=== PATIENT | male | born 1990 | race African-American/Black ===

== ENCOUNTER 2024-07-05 17:33 | Inpatient (IN) | payer MEDICAID ==
[~2024-07-05] VITALS: Ht 180.3 cm; Wt 85.7 kg
[~2024-07-05 17:33] MED LIST: HYDR-4902 PO; NYS5LQ MT; PANT40TA57 PO; SUCR1SUS26 PO
[2024-07-05] MEDS: IOHEXOL 300 MG/ML 100ML BOTTLE IJ ONE (17:54)
[2024-07-05 18:30] VITALS: PULSE 72; RESP 16; O2SAT 98
[2024-07-05] MEDS: ONDANSETRON HCL 4 MG/2 ML VIAL IV ONE (18:42)
[2024-07-05] MEDS: SODIUM CHLORIDE 0.9% 1,000 ML IV ONE ×3 (18:42→22:17)
[2024-07-05 18:57] LABS: Basophils # (auto) 0 10 ^3/uL (0-0.2); Basophils % (auto) 0.2 % (0.0-2.0); Eosinophils # (auto) 0 10 ^3/uL (0-0.8); Hematocrit 44.4 % (41.0-53.0); Hemoglobin 15.4 g/dL (13.5-17.5); Lymphocytes # (auto) 1.1 10 ^3/uL (0.4-5.4); Lymphocytes % (auto) 6.9 % (10.0-50.0); Mean Corpuscular Hgb Conc. 34.7 g/dL (32.0-36.0); Mean Corpuscular Volume 92.2 fL (80.0-100.0); Monocytes # (auto) 0.3 10 ^3/uL (0-1.3); Monocytes % (auto) 1.8 % (0.0-12.0); Neutrophils # (auto) 14.4 10 ^3/uL (1.6-8.6); Neutrophils % (auto) 91.1 % (37.0-80.0); Nucleated Red Blood Cells % 0.1 %; Platelet Count (auto) 284 10^3/uL (140-450); Red Blood Cells 4.82 10^6/uL (4.5-5.90); Red Cell Distribution Width 13.7 % (11.8-14.3); White Blood Cell 15.8 10^3/uL (4.4-10.8)
[2024-07-05 19:18] LABS: Lactic Acid w/Reflex 4.8 mmol/L (0.4-2.0)
[2024-07-05 19:39] LABS: Urine Bacteria None Seen /hpf (None Seen)
--- NOTE | 2024-07-05 19:43 | ED.PDOC ---
GI ASSESSMENT HPI Comments 34 y.o male presents to the ED for a chief complaint of abdominal pain associated with nausea and vomiting x 1 day. Patient woke up with progressively worsening pain this morning followed by nausea and hematemesis. Patient describes pain as sharp, non radiating, constant and rating a 10/10 on the pain scale. Patient denies any other symptoms or pain at this time. Patient was diagnosed with a hiatal hernia in March of 2024 and had similar symptoms then. Patient never had surgery for hernia. VITALS: Temp: 98 F BP: 141/70 HR: 67 RR: 17 SPO2: 100% RA Past medical history: Hiatal hernia, Tobacco and alcohol use Past surgical history: None Denies any allergies HPI: Poor Historian. REVIEW OF SYSTEMS: CONSTITUTIONAL: Denies acute: fever, diaphoresis, chills, HEAD: Denies acute: headache, photophobia Eyes: Denies acute: Double vision, vision loss, eye pain, eye discharge. EARS: Denies acute: tinnitus, hearing loss, ear discharge, ear pain, THROAT: Denies acute: sore throat, swelling, difficulty swallowing , pain with swallowing, change in voice. NECK: Denies acute: neck pain, neck swelling, stiff neck. HEART: Denies acute : chest pain, palpitations, LUNGS: Denies acute: SOB, wheezing, cough, hemoptysis ABDOMEN: Denies acute: , diarrhea, melena , hematochezia SKIN: Denies acute: rash, redness, lesions, itchiness. EXTREMITIES: Denies acute: calf pain, numbness, tingling, weakness, denies pain in extremity. Denies acute: Low back pain. Neuro: Denies acute: focal neurological deficit, motor or sensory focal neurological deficit, tremors, seizure like activity, confusion, dizziness, change in mental status, loss of bowel or bladder function, cauda equina like symptoms. : Denies acute: dysuria, hematuria, flank pain, increase in urinary frequency. PSYCH: Denies acute: hallucination, suicidal ideation, homicidal ideation. PHYSICAL EXAM: General: no acute distress, awake and alert. Head: normocephalic, atraumatic. Neck: supple, trachea is midline, no swelling. Throat: Normal phonation. Eyes:, no erythema, no purulent discharge, no proptosis, no icterus. Heart: regular rate, regular rhythm, no significant murmur appreciated. Lungs: no apparent respiratory distress, Able to speak in full sentences. No wheezing, no rhonchi, no crackles. No stridors Clear to auscultation bilaterally. Abdomen: Epigastric tender to palpation, non distended, soft, no guarding, no rebound, + bowel sounds. Neuro: Awake, Alert, oriented to name, self, situation, follows commands GCS=15. Speech is normal. Skin: no petechia, no purpura, no cyanosis, non-pale, not jaundice. Lower extremities: --no - Pitting edema no deformity, no focal swelling, no calf TTP. Makes eye contact. moves all four extremities. Face: no apparent facial droop. Ambulating in the ED independently. ED COURSE: Chief Complaint: Abdominal Pain Time Seen by MD: 19:30 Reviewed Notes: Nurses Notes, Medications, Allergies Allergies: Coded Allergies: NO KNOWN ALLERGIES (Unverified , 03/23/24) Home Meds Active Scripts Hydrocodone-Acetaminophen (Hydrocodone Bitartrate/AC 5-325 mg) 1 Tab Tab, 1 TAB PO Q8HPRN PRN, #10 TAB Prov:THONY HASTINGS MD 03/28/24 Nystatin (Mouth-Throat) (Mycostatin (Mouth-Throat)) 500,000 Units/5 Ml Ss, 5 ML MT QID for 10 Days, #200 ML Prov:THONY HASTINGS MD 03/28/24 Pantoprazole Sodium Sesquihydr (Pantoprazole Sodium Dr) 40 Mg Tab, 40 MG PO BID, #90 TAB Prov:THONY HASTINGS MD 03/28/24 Sucralfate (CARAFATE SUSP) 1 Gm/10 Ml Ss, 10 ML PO QID, #1200 ML 3 Refills Prov:THONY HASTINGS MD 03/28/24 Information Source: Patient Mode of Arrival: Ambulatory Timing: Days (1) Past Medical History Past Medical History (Other): hiatal hernia Surgical History: Denies all surgeries Family History Family History: Reviewed,noncontributory to illness Social History Smoker: Cigarettes Alcohol: Occasionally Drugs: Denies Drug Use Lives In: Home Was a procedure done? Was a procedure done?: No GI differential Dx Differential Diagnosis: Gastroenteritis, Hernia, Inflammatory BD, Pancreatitis, Other (DDX include but not limited to diverticulitis, colitis, gastroenteritis, acute abdomen, SBO, enteritis, constipation, volvulus, appendicitis, Gallbladder disease, choledocolithiasis, ascending cholangitis, pancreatitis, intraAbdominal mass/neoplasm, hepatitis, UTI, pylonephritis, kidney stone, aneurysm, dissection, Inflammatory bowel disease, gastroparesis, ischemic bowel.) X-Ray, Labs, Meds, VS Vital Signs Date Time Temp Pulse Resp B/P (MAP) Pulse Ox O2 Delivery O2 Flow Rate FiO2 07/05/24 20:17 98.6 65 22 141/77 (98) 97 98.6 07/05/24 18:30 98.9 72 16 121/65 (83) 98 98.9 07/05/24 18:30 72 16 98 Room Air* 0 21 07/05/24 17:59 98.0 67 17 141/70 (93) 100 Lab Test 07/05/24 21:30 07/05/24 20:13 07/05/24 19:53 07/05/24 19:39 Range/Units Lactic Acid Level 3.8 *H 5.2 *H 0.4-2.0 mmol/L Prothrombin Time 11.4 9.3-11.8 sec Prothrombin Time INR 1.08 0.9-1.15 Activated Partial Thromboplast Time 25.8 24.5-34.5 SEC Sodium Level 144 136-145 mmol/L Potassium Level 3.9 3.5-5.1 mmol/L Chloride Level 108 H 98-107 mmol/L Carbon Dioxide Level 23 20-31 mmol/L Anion Gap 13 5-15 Blood Urea Nitrogen 12 9-23 mg/dL Creatinine 0.88 0.700-1.30 mg/dL Glomerular Filtration Rate Calc 117 >90 mL/min BUN/Creatinine Ratio 13.6 10.0-20.0 Serum Glucose 134 H 74-106 mg/dL Calcium Level 10.5 H 8.7-10.4 mg/dL Total Bilirubin 0.6 0.2-1.0 mg/dL Aspartate Amino Transferase (AST) 12 L 13-40 U/L Alanine Aminotransferase (ALT) 33 7-40 U/L Alkaline Phosphatase 61 46-116 U/L Total Protein 7.6 5.7-8.2 g/dL Albumin 5.4 H 3.2-4.8 g/dL Lipase 22 12-53 U/L Urine Color Yellow Yellow Urine Clarity Clear Clear Urine pH 8.5 5.0-9.0 Urine Specific [place] 1.030 1.001-1.035 Urine Protein 3+ H Negative Urine Ketones 1+ H Negative Urine Blood Negative Negative /uL Urine Nitrite Negative Negative Urine Bilirubin Negative Negative Urine Urobilinogen Normal Negative mg/dL Urine Leukocyte Esterase Negative Negative /uL Urine RBC 40 0 - 3 /hpf Urine Microscopic WBC 1 0-3 /HPF Urine Squamous Epithelial Cells None seen <5 /hpf Urine Bacteria None seen None Seen /hpf Urine Mucus Few None Seen Urine Glucose Normal Normal mg/dL Urine Opiates Screen Neg NEGATIVE Urine Fentanyl Screen Neg NEGATIVE Urine Barbiturates Screen Neg NEGATIVE Urine Phencyclidine Screen Neg NEGATIVE Urine Amphetamines Screen Neg NEGATIVE Urine Benzodiazepines Screen Neg NEGATIVE Urine Cocaine Screen Neg NEGATIVE Urine Cannabinoids Screen Pos NEGATIVE Test 07/05/24 18:34 Range/Units White Blood Count 15.8 H 4.4-10.8 10^3/uL Red Blood Count 4.82 4.5-5.90 10^6/uL Hemoglobin 15.4 13.5-17.5 g/dL Hematocrit 44.4 41.0-53.0 % Mean Corpuscular Volume 92.2 80.0-100.0 fL Mean Corpuscular Hemoglobin 32.0 28.0-32.0 pg Mean Corpuscular Hemoglobin Concent 34.7 32.0-36.0 g/dL Red Cell Distribution Width 13.7 11.8-14.3 % Platelet Count 284 140-450 10^3/uL Mean Platelet Volume 8.5 6.9-10.8 fL Neutrophils (%) (Auto) 91.1 H 37.0-80.0 % Lymphocytes (%) (Auto) 6.9 L 10.0-50.0 % Monocytes (%) (Auto) 1.8 0.0-12.0 % Eosinophils (%) (Auto) 0.0 0.0-7.0 % Basophils (%) (Auto) 0.2 0.0-2.0 % Neutrophils # (Auto) 14.4 H 1.6-8.6 10 ^3/uL Lymphocytes # (Auto) 1.1 0.4-5.4 10 ^3/uL Monocytes # (Auto) 0.3 0-1.3 10 ^3/uL Eosinophils # (Auto) 0 0-0.8 10 ^3/uL Basophils # (Auto) 0 0-0.2 10 ^3/uL Nucleated Red Blood Cells 0.1 % Lactic Acid Level 4.8 *H 0.4-2.0 mmol/L Troponin I High Sensitivity < 3 L </=54 ng/L Current Medications Medications (Trade) Dose Ordered Sig/Alonso Route Start Time Stop Time Status Last Admin Ondansetron HCl (Zofran) 8 mg ONCE ONCE IV 07/05/24 18:15 07/05/24 18:16 DC 07/05/24 18:42 Sodium Chloride 1,000 ml @ 1,000 mls/hr Q1H ONCE IV 07/05/24 18:15 07/05/24 19:14 DC 07/05/24 18:42 Sodium Chloride 1,000 ml @ 1,000 mls/hr Q1H ONCE IV 07/05/24 19:30 07/05/24 20:29 DC 07/05/24 19:34 Piperacillin Sod/ Tazobactam Sod 100 ml @ 100 mls/hr ONCE ONCE IV 07/05/24 19:30 07/05/24 20:29 DC 07/05/24 20:13 Pantoprazole Sodium (Protonix) 40 mg ONCE ONCE IV 07/05/24 19:45 07/05/24 19:46 DC 07/05/24 20:07 Sodium Chloride 1,000 ml @ 1,000 mls/hr Q1H ONCE IV 07/05/24 21:30 07/05/24 22:29 DC 07/05/24 22:17 Time of 1ST Reevaluation: 19:39 Reevaluation 1ST: Unchanged Time of 2ND Reevaluation: 02:06 Reevaluation 2ND: Improved Patient Education/Counseling: Diagnosis, Treatment Family Education/Counseling: No Family Present Comments Patient presented with the above HPI.----abdominal pain--workup was initiated. patient was found with the above mentioned diagnosis. the following medications were ordered: please refer to order lists of meds and tests obtained by myself Dr. Pickard. Patient ED course and VS have been stabilized. Patient has been reassessed in the ED and remained in a stable condition. Pertinent incidental findings were discussed with the patient and/or family. Patient/family voices understanding and is agreeable with plan. Patient has been observed in the ED adequate length of time to insure improvement/stability. Escalation of care considered: Consideration of escalation to observation or admission Patient was ADMITTED to the medicine team for further evaluation and treatment of their presentation. All the reports of any imaging studies that were ordered by myself were reviewed by myself. Departure 1 Departure Time of Disposition: 22:00 Impression: Primary Impression: Hematemesis Additional Impressions: Epigastric abdominal pain Leukocytosis Elevated lactic acid level Non-specific colitis Disposition: ADMITTED INPATIENT Admit to: Tele Condition: Guarded Discharged With: Self Critical Care Note Critical Care Time?: Yes (35 min-critical care time only) I personally scribed for PAOLA PICKARD DO ([email or web address]) on 07/05/24 at 19:43. Electronically submitted by Charlotte Mehta ([facility]). PAOLA PICKARD DO Jul 05, 2024 19:43
[2024-07-05 20:02] LABS: Urine Blood Negative /uL (Negative); Urine Clarity Clear (Clear); Urine Color Yellow (Yellow); Urine Mucus FEW (None Seen); Urine Protein, UAD 3+ (Negative); Urine Squamous Epithelial Cell None Seen /hpf (<5); Urine Urobilinogen Normal (Negative); Urine WBC 1 /HPF (0-3); Urine pH 8.5 (5.0-9.0)
[2024-07-05] MEDS: PANTOPRAZOLE 40 MG/10 ML VIAL INJ IV ONE (20:07)
[2024-07-05] MEDS: PIPERACILLIN-TAZOB 3.375GM 100 ML IV ONE (20:13)
[2024-07-05 20:17] VITALS: PULSE 70; RESP 18; O2SAT 97
[2024-07-05 20:23] LABS: Amphetamine Screen, Urine Neg (NEGATIVE); Barbiturate Scree,Urine Neg (NEGATIVE); Benzodiazephine Screen, Urine Neg (NEGATIVE); Cannabinoid Screen, Urine Pos (NEGATIVE); Cocaine Screen, Urine Neg (NEGATIVE); Opiate Scree,Urine Neg (NEGATIVE); Phencyclidine Screen, Urine Neg (NEGATIVE)
[2024-07-05 20:41] LABS: Calcium 10.5 mg/dL (8.7-10.4)
[2024-07-05 20:47] LABS: Alkaline Phosphatase 61 U/L (46-116); Aspartate Aminotransferase 12 U/L (13-40); Glucose 134 mg/dL (74-106)
[2024-07-05 21:01] LABS: Alanine Aminotransferase 33 U/L (7-40); Albumin 5.4 g/dL (3.2-4.8); Anion Gap 13 (5-15); BUN/Creatinine Ratio 13.6 (10.0-20.0); Bilirubin, Total 0.6 mg/dL (0.2-1.0); Blood Urea Nitrogen 12 mg/dL (9-23); Carbon Dioxide 23 mmol/L (20-31); Chloride 108 mmol/L (98-107); Lipase 22 U/L (12-53); Potassium 3.9 mmol/L (3.5-5.1); Sodium 144 mmol/L (136-145); Total Protein 7.6 g/dL (5.7-8.2)
--- NOTE | 2024-07-05 21:42 | DVH ---
Exam: CT CT AB PEL WITH IV CON ONLY History: ABD PAIN N/V COMPARISON: CT CT AB PEL WITH IV CON ONLY on DOS: 03/23/24 Technique: Multidetector spiral CT of the abdomen and pelvis was performed from lung bases to pubic s ymphysis. Intravenous contrast was administered during this examination. Portal venous imaging was obtained. Axial, coronal and sagittal multiplanar reformats were performed by the technologist on a separate workstation. Radiation Dose : 1. Abdomen/Pelvis: CTDIvol 12.56mGy, DLP 713.52 mGy*cm. CONTRAST: Type of contrast: Contrast injected: ml Contrast ingested: ml Findings: Lung Bases: No abnormality demonstrated. Liver: Liver is normal in size. No focal lesions noted. Normal hepatic vascular enhancement. Gallbladder and Biliary Tree: No abnormality demonstrated. Spleen: No abnormality demonstrated. Pancreas: No abnormality demonstrated. Adrenal Glands: No abnormality demonstrated. Kidneys: No abnormality demonstrated. No evidence of renal mass, calculus, or hydroureteronephrosis . Bladder: Unremarkable. Bowel: Stomach appears grossly unremarkable. No small bowel abnormality noted. There is evidence of b owel wall thickening involving the transverse colon and hepatic flexure, nonspecific, may represent c olitis. Appendix appears unremarkable. Ascites: Absent Lymphadenopathy: No evidence of lymphadenopathy. Abdominal Wall and Mesentery: Unremarkable. Vasculature: Unremarkable. Pelvic Organs: Unremarkable. Musculoskeletal: No bony lesions or fracture. IMPRESSION: Evidence of bowel wall thickening involving the transverse colon and hepatic flexure, nonspecific, ma y represent colitis. Otherwise unremarkable study. Radiation optimization: All CT scans at this facility use at least one of these dose optimization petar hniques: automated exposure control mA and/or kV adjustment per patient size (includes targeted exam s where dose is matched to clinical indication) or iterative reconstruction.
[2024-07-05 21:50] LABS: INR 1.08 (0.9-1.15); Partial Thromboplastin Time 25.8 SEC (24.5-34.5); Prothrombin Time 11.4 sec (9.3-11.8)
[2024-07-05 22:41] LABS: Lactic Acid w/Reflex 3.8 mmol/L (0.4-2.0)
[2024-07-05] MEDS ORDERED: NITROGLYCERIN 0.4 MG SL TAB SL PRN (23:00)
[2024-07-05] MEDS ORDERED: MORPHINE SULFATE INJ 2 MG/ml SYRG IV PRN (23:00)
--- NOTE | 2024-07-05 23:41 | DVHHP2 ---
History of Present Illness Reason for Visit: Abdominal pain History of Present Illness 34-year-old male presents for evaluation of abdominal pain. Patient reports a one day history of sharp epigastric abdominal pain with associated vomiting. He states noticing blood clots with emesis. Denies melena. No dizziness, shortness for breath or chest pain. He also reports having a fever today. No other acute complaints reported. Past Medical History Hiatal hernia Past Surgical History None Family History Denies Smoke: No ALCOHOL: none Drugs: None Lives: with Family Review of Systems Review of Systems Review of systems are currently negative otherwise addressed in HPI. Allergies: Coded Allergies: NO KNOWN ALLERGIES (Unverified , 03/23/24) Medications Current Medications Medications Dose Ordered Sig/Alonso Route Start Time Stop Time Status Last Admin Dose Admin Nitroglycerin 0.4 mg Q5MINP PRN SL 07/05/24 23:00 Morphine Sulfate 2 mg Q30M PRN IV 07/05/24 23:00 Pantoprazole Sodium 40 mg DAILY@0600 PO 07/06/24 06:00 Ceftriaxone Sodium 50 ml @ 100 mls/hr DAILY@09 IV 07/06/24 09:00 Metronidazole 100 ml @ 100 mls/hr Q8HR IV 07/06/24 06:00 Acetaminophen/ Hydrocodone Bitart 1 tab Q4HP PRN PO 07/05/24 23:00 Ondansetron HCl 4 mg Q4HP PRN IV 07/05/24 23:00 Acetaminophen 650 mg Q6HP PRN PO 07/05/24 23:00 Morphine Sulfate 2 mg Q6HPRN PRN IV 07/05/24 23:00 Exam Vital Signs Vital Signs Date Time Temp Pulse Resp B/P (MAP) Pulse Ox O2 Delivery O2 Flow Rate FiO2 07/05/24 20:17 98.6 65 22 141/77 (98) 97 98.6 07/05/24 18:30 Room Air* 0 21 Exam Gen: 34-year-old male in mild distress. Skin: Warm, dry, normal color and texture, no rash. HEENT: Normocephalic atraumatic, mucous membranes moist and pink. Neck: Cervical and supraclavicular nodes normal without enlargement, trachea is midline, thyroid gland is normal without masses. Pulmonary: Clear to auscultation and percussion bilaterally. Cardiac: Regular rate and rhythm. No murmur Abdomen: Soft, epigastric tenderness, nondistended, bowel sounds present all 4 quadrants, no guarding, no rigidity, no organomegaly. Extremities: No cyanosis, clubbing, no edema Neuro: Cranial nerves II through XII grossly intact, normal affect and speech, no focal motor deficits. Labs/Xrays ORDERING PHYSICIAN: PAOLA PACKER DO PROCEDURE(s): ABPLIV - CT AB PEL WITH IV CON ONLY REASON: ABD PAIN N/V ORDER NUMBER(s): [id number], ACCESSION NUMBER(s): [id number] Exam: CT CT AB PEL WITH IV CON ONLY History: ABD PAIN N/V COMPARISON: CT CT AB PEL WITH IV CON ONLY on DOS: 03/23/24 Technique: Multidetector spiral CT of the abdomen and pelvis was performed from lung bases to pubic symphysis. Intravenous contrast was administered during this examination. Portal venous imaging was obtained. Axial, coronal and sagittal multiplanar reformats were performed by the technologist on a separate workstation. Radiation Dose : 1. Abdomen/Pelvis: CTDIvol 12.56mGy, DLP 713.52 mGy*cm. CONTRAST: Type of contrast: Contrast injected: ml Contrast ingested: ml Findings: Lung Bases: No abnormality demonstrated. Liver: Liver is normal in size. No focal lesions noted. Normal hepatic vascular enhancement. Gallbladder and Biliary Tree: No abnormality demonstrated. Spleen: No abnormality demonstrated. Pancreas: No abnormality demonstrated. Adrenal Glands: No abnormality demonstrated. Kidneys: No abnormality demonstrated. No evidence of renal mass, calculus, or hydroureteronephrosis. Bladder: Unremarkable. Bowel: Stomach appears grossly unremarkable. No small bowel abnormality noted. There is evidence of bowel wall thickening involving the transverse colon and hepatic flexure, nonspecific, may represent colitis. Appendix appears unremarkable. Ascites: Absent Lymphadenopathy: No evidence of lymphadenopathy. Abdominal Wall and Mesentery: Unremarkable. Vasculature: Unremarkable. Pelvic Organs: Unremarkable. Musculoskeletal: No bony lesions or fracture. IMPRESSION: Evidence of bowel wall thickening involving the transverse colon and hepatic flexure, nonspecific, may represent colitis. Otherwise unremarkable study. Radiation optimization: All CT scans at this facility use at least one of these dose optimization techniques: automated exposure control mA and/or kV adjustment per patient size (includes targeted exams where dose is matched to clinical indication) or iterative reconstruction. Labs Test 07/05/24 23:27 07/05/24 19:53 07/05/24 19:39 07/05/24 18:34 Range/Units Prothrombin Time 11.4 9.3-11.8 sec Prothrombin Time INR 1.08 0.9-1.15 Activated Partial Thromboplast Time 25.8 24.5-34.5 SEC Sodium Level 144 136-145 mmol/L Potassium Level 3.9 3.5-5.1 mmol/L Chloride Level 108 H 98-107 mmol/L Carbon Dioxide Level 23 20-31 mmol/L Anion Gap 13 5-15 Blood Urea Nitrogen 12 9-23 mg/dL Creatinine 0.88 0.700-1.30 mg/dL Glomerular Filtration Rate Calc 117 >90 mL/min BUN/Creatinine Ratio 13.6 10.0-20.0 Serum Glucose 134 H 74-106 mg/dL Calcium Level 10.5 H 8.7-10.4 mg/dL Total Bilirubin 0.6 0.2-1.0 mg/dL Aspartate Amino Transferase (AST) 12 L 13-40 U/L Alanine Aminotransferase (ALT) 33 7-40 U/L Alkaline Phosphatase 61 46-116 U/L Total Protein 7.6 5.7-8.2 g/dL Albumin 5.4 H 3.2-4.8 g/dL Lipase 22 12-53 U/L Urine Color Yellow Yellow Urine Clarity Clear Clear Urine pH 8.5 5.0-9.0 Urine Specific [place] 1.030 1.001-1.035 Urine Protein 3+ H Negative Urine Ketones 1+ H Negative Urine Blood Negative Negative /uL Urine Nitrite Negative Negative Urine Bilirubin Negative Negative Urine Urobilinogen Normal Negative mg/dL Urine Leukocyte Esterase Negative Negative /uL Urine RBC 40 0 - 3 /hpf Urine Microscopic WBC 1 0-3 /HPF Urine Squamous Epithelial Cells None seen <5 /hpf Urine Bacteria None seen None Seen /hpf Urine Mucus Few None Seen Urine Glucose Normal Normal mg/dL Urine Opiates Screen Neg NEGATIVE Urine Fentanyl Screen Neg NEGATIVE Urine Barbiturates Screen Neg NEGATIVE Urine Phencyclidine Screen Neg NEGATIVE Urine Amphetamines Screen Neg NEGATIVE Urine Benzodiazepines Screen Neg NEGATIVE Urine Cocaine Screen Neg NEGATIVE Urine Cannabinoids Screen Pos NEGATIVE White Blood Count 15.8 H 4.4-10.8 10^3/uL Red Blood Count 4.82 4.5-5.90 10^6/uL Hemoglobin 15.4 13.5-17.5 g/dL Hematocrit 44.4 41.0-53.0 % Mean Corpuscular Volume 92.2 80.0-100.0 fL Mean Corpuscular Hemoglobin 32.0 28.0-32.0 pg Mean Corpuscular Hemoglobin Concent 34.7 32.0-36.0 g/dL Red Cell Distribution Width 13.7 11.8-14.3 % Platelet Count 284 140-450 10^3/uL Mean Platelet Volume 8.5 6.9-10.8 fL Neutrophils (%) (Auto) 91.1 H 37.0-80.0 % Lymphocytes (%) (Auto) 6.9 L 10.0-50.0 % Monocytes (%) (Auto) 1.8 0.0-12.0 % Eosinophils (%) (Auto) 0.0 0.0-7.0 % Basophils (%) (Auto) 0.2 0.0-2.0 % Neutrophils # (Auto) 14.4 H 1.6-8.6 10 ^3/uL Lymphocytes # (Auto) 1.1 0.4-5.4 10 ^3/uL Monocytes # (Auto) 0.3 0-1.3 10 ^3/uL Eosinophils # (Auto) 0 0-0.8 10 ^3/uL Basophils # (Auto) 0 0-0.2 10 ^3/uL Nucleated Red Blood Cells 0.1 % Troponin I High Sensitivity < 3 L </=54 ng/L Assessment/Plan Assessment/Plan Assessment Acute colitis ? Hematemesis Leukocytosis Plan Admit the patient to [facility] to the hospitalist GI consult Rocephin/Flagyl Clear liquid diet Protonix Continue treatment per orders. Plan discussed with: Patient My Orders Orders - DIOR GENTILE Procedure Category Date Status Time Admit ADMIT 07/05/24 Transmitted 22:50 Nitroglycerin PHA 07/05/24 In Process Sublingual (Ntrostat 23:00 Morphine Sulfate PHA 07/05/24 In Process Injection 23:00 Stat Ekg For Chest RASHAD 07/05/24 In Process Pain 22:50 Notify Of Changes RASHAD 07/05/24 In Process From Base 22:50 Bead Wrapper For RASHAD 07/05/24 In Process 24 Hours 22:50 Emergency Dysrhythmia RASHAD 07/05/24 In Process Protocol 22:50 Rhythm Strips Once RASHAD 07/05/24 In Process Every Shift 22:50 Oxygen By Nasal RT 07/05/24 Transmitted Cannula 22:50 Pantoprazole Tablet PHA 07/06/24 In Process (Protonix Tablet) 06:00 Gastric Occult Blood LAB 07/05/24 Logged 22:53 Ceftriaxone 1gm/50ml PHA 07/06/24 In Process D5w (Rocephin) 09:00 Metronidazole PHA 07/06/24 In Process 500mg/100ml (Flagyl 06:00 Metronidazole PHA 07/05/24 In Process 500mg/100ml (Flagyl 23:00 * [facility] [employer] Specialist CONS 07/05/24 Transmitted 22:53 Hydrocodone-Acet PHA 07/05/24 In Process 5/325mg Tab (Bond 23:00 Ondansetron Hcl PHA 07/05/24 In Process (Zofran) 23:00 Complete Blood Count LAB 07/06/24 Verified 04:00 Comprehensive LAB 07/06/24 Verified Metabolic Panel 04:00 Condition: Stable RASHAD 07/05/24 In Process 22:53 Acetaminophen Tablet PHA 07/05/24 In Process (Tylenol Tablet) 23:00 Clear Liq Diet DIET 07/06/24 Transmitted Breakfast Bedrest With Bathroom RASHAD 07/05/24 In Process Privileg 22:53 Morphine Sulfate PHA 07/05/24 In Process Injection 23:00 Date of Service: Jul 05, 2024 Billing Provider: DIOR GENTILE Common Visit Codes: [id number] INP/OBS CARE (HIGH) DIOR GENTILE Jul 05, 2024 23:41
[2024-07-05] MEDS: OCTREOTIDE ACETATE 100 MCG in SODIUM CHL 0.9% 50 ML IV ONE (23:58)
[2024-07-05] MEDS: OCTREOTIDE ACETATE 100 MCG/ML VL ONE (23:59)
[2024-07-06] MEDS: metroNIDAZOLE 500MG/100ML 100 ML IV ONE ×2 (00:04→00:17)
[2024-07-06] MEDS: HYDROcodone-ACET 5/325MG TAB PO PRN (00:37)
[2024-07-06] MEDS: metroNIDAZOLE 500MG/100ML 100 ML IV SCH (05:53)
[2024-07-06] MEDS ORDERED: PANTOPRAZOLE 40 MG TAB PO SCH (06:00)
[2024-07-06 06:04] LABS: Basophils # (auto) 0 10 ^3/uL (0-0.2); Basophils % (auto) 0.2 % (0.0-2.0); Eosinophils # (auto) 0 10 ^3/uL (0-0.8); Hematocrit 40.8 % (41.0-53.0); Hemoglobin 13.7 g/dL (13.5-17.5); Lymphocytes # (auto) 2.2 10 ^3/uL (0.4-5.4); Lymphocytes % (auto) 15.5 % (10.0-50.0); Mean Corpuscular Hemoglobin 31.3 pg (28.0-32.0); Mean Corpuscular Hgb Conc. 33.6 g/dL (32.0-36.0); Mean Corpuscular Volume 93.1 fL (80.0-100.0); Monocytes # (auto) 0.9 10 ^3/uL (0-1.3); Monocytes % (auto) 6.7 % (0.0-12.0); Neutrophils # (auto) 10.8 10 ^3/uL (1.6-8.6); Neutrophils % (auto) 77.6 % (37.0-80.0); Platelet Count (auto) 239 10^3/uL (140-450); Red Blood Cells 4.38 10^6/uL (4.5-5.90); Red Cell Distribution Width 13.9 % (11.8-14.3)
[2024-07-06 06:14] LABS: Alanine Aminotransferase 27 U/L (7-40); Alkaline Phosphatase 58 U/L (46-116); Calcium 10.1 mg/dL (8.7-10.4); Carbon Dioxide 24 mmol/L (20-31); Chloride 105 mmol/L (98-107); Glucose 99 mg/dL (74-106); Potassium 3.7 mmol/L (3.5-5.1); Sodium 140 mmol/L (136-145)
[2024-07-06 06:15] LABS: Anion Gap 11 (5-15); Bilirubin, Total 0.8 mg/dL (0.2-1.0); Total Protein 7.8 g/dL (5.7-8.2)
[2024-07-06 06:22] LABS: Albumin 5.3 g/dL (3.2-4.8); Aspartate Aminotransferase 11 U/L (13-40); Blood Urea Nitrogen 9 mg/dL (9-23)
[2024-07-06] MEDS: SODIUM CHLORIDE 0.9% 1,000 ML IV SCH ×2 (08:07→22:20)
--- NOTE | 2024-07-06 09:19 | DVHPNRES ---
Progress Note Date Seen: Jul 06, 2024 Resident Creating Document: NERISSA TUTTLE RESIDENT Medical Necessity Reason Pt with a Central, PICC or Fol: No Subjective Review of Systems This is a 34-year-old male with past medical history of hiatal hernia presented to the ED with a chief complaint of epigastric abdominal pain with nausea and vomiting for 6 hours prior to this admission. the patient stated he noticed blood clot with the emesis. the patient he had same symptoms 4 months ago and was admitted to the [facility] on February,. patient underwent EGD which revealed 3-4 cm hiatal hernia, severe erosive esophagitis and [id number] gastritis and duodenitis. Patient denied melena, chest pain, shortness of breath, altered bowel habit, sick contact or any history of traveling recently. Patient was seen and examined on the bedside. He is alert oriented x3. Complain of nausea and abdominal pain. No other active complaints. Constitutional: No: Fever, Chills, Sweats, Weakness, Malaise, Other Eyes: No: Pain, Vision change, Conjunctivae inflammation, Eyelid inflammation, Other, Redness ENT: No: Ear pain, Ear discharge, Nose pain, Nose discharge, Nose congestion, Mouth pain, Mouth swelling, Throat pain, Throat swelling, Other Respiratory: Shortness of breath, improving No: Cough, Dry,Wheezing, Hemoptysis, Pleuritic Pain, Sputum, Wheezing, Other Cardiovascular: No: Chest Pain, Palpitations, Orthopnea, Paroxysmal Noc. Dyspnea, Edema, Lt Headedness, Other Gastrointestinal: Nausea, Abdominal Pain, No Vomiting, Diarrhea, Constipation, Melena, Hematochezia, Other Musculoskeletal: No: other, neck pain, shoulder pain, arm pain, back pain, hand pain, leg pain, foot pain Neurological:; No: Weakness, Numbness, Incoordination, Change in speech, Confusion, Seizures Objective vital signs Vital Sign Date Time Temp Pulse Resp B/P (MAP) Pulse Ox O2 Delivery O2 Flow Rate FiO2 07/06/24 08:25 Room Air* 0 21 07/06/24 06:00 98.8 64 18 151/72 (98) 99 98.8 Total Intake and Output 07/05/24 07/05/24 07/06/24 15:00 23:00 07:00 Intake Total 100 ml Balance 100 ml medications Current Medications Medications Dose Ordered Sig/Alonso Route Start Time Stop Time Status Last Admin Dose Admin Nitroglycerin 0.4 mg Q5MINP PRN SL 07/05/24 23:00 Morphine Sulfate 2 mg Q30M PRN IV 07/05/24 23:00 Ceftriaxone Sodium 50 ml @ 100 mls/hr DAILY@09 IV 07/06/24 09:00 Metronidazole 100 ml @ 100 mls/hr Q8HR IV 07/06/24 06:00 07/06/24 05:53 100 MLS/HR Acetaminophen/ Hydrocodone Bitart 1 tab Q4HP PRN PO 07/05/24 23:00 07/06/24 08:09 1 TAB Ondansetron HCl 4 mg Q4HP PRN IV 07/05/24 23:00 Acetaminophen 650 mg Q6HP PRN PO 07/05/24 23:00 Morphine Sulfate 2 mg Q6HPRN PRN IV 07/05/24 23:00 Pantoprazole Sodium 40 mg DAILY IV 07/06/24 10:00 Sodium Chloride 1,000 ml @ 100 mls/hr Q10H IV 07/06/24 07:45 07/06/24 08:07 100 MLS/HR Examination Physical examination: General Appearance: Alert, Oriented X3, Cooperative, No acute distress HEENT: Atraumatic, PERRLA, EOMI, Mucous membrane moist/pink Respiratory: Clear to auscultation, Normal air movement Cardiovascular: Regular rate, Normal S1, Normal S2, No murmurs, no chest wall tenderness Abdominal: Normal bowel sounds, Soft, mild tenderness in the epigastric region, No hepatospenomegaly, No masses Extremities: No clubbing, No cyanosis, No edema, Normal pulses, No tenderness/swelling Skin: No rashes, No breakdown, No significant lesion Neuro: Normal gait, Normal speech, Strength at 5/5 X4 ext, Normal tone, Sensation intact, grossly intact cranial nerves. Psych/Mental Status: Mental status NL, Mood NL laboratory and microbiology Laboratory Tests 07/06/24 05:20 Test 07/06/24 05:20 Range/Units Serum Glucose 99 74-106 mg/dL Labs and/or images reviewed: Labs reviewed by me, Image(s) reviewed by me Problem List/Assessment/Plan Problem List/Assessment/Plan Assessment and plan: # Sepsis likely due to colitis # Possible upper GI bleeding likely due to gastritis # H.pylori positive # Intractatable abdominal pain , nausea and vomiting likely due to colitis # Rule out infectious etiology of colitis # Lactic acidosis likely due to dehydration CT abdomen pelvis revealed evidence of bowel wall thickening involving the transverse colon and hepatic flexure, nonspecific, may represent colitis. EGD on 03/21 demonstrated Severe erosive esophagitis mid to distal esophageal, severe gastritis within the hernia, [id number] gastritis in the body and antrum, hiatal hernia , 3-4 CM and mild duodenitis - H&H is stable - Pending FOBT - GI in board and recommended stool for WBC, bacterial culture and C-diff - Patient is on clear liquid diet - IV normal saline at 100 mL/hours - IV Protonix 40 mg daily - Carafate suspension 1 g p.o. b.i.d. - IV ceftriaxone 1 g daily and IV metronidazole 500 mg t.i.d. PUD prophylaxis : On protonix DVT prophylaxis : Not recommended as patient is mobile , Code status : Full code Plan discussed with Dr. Smith Plan discussed with: Patient, Other My Orders My Orders Orders - NERISSA TUTTLE RESIDENT Procedure Category Date Status Time Stool Occult Blood LAB 07/06/24 Uncollected 06:53 Sodium Chloride 0.9% PHA 07/06/24 In Process 07:45 Date of Service: Jul 06, 2024 Billing Provider: LEESA ARCHIBALD MD Common Visit Codes: [id number] INP/OBS CARE(HIGH) NERISSA TUTTLE RESIDENT Jul 06, 2024 09:19 LEESA ARCHIBALD MD Jul 11, 2024 23:34
[2024-07-06 09:56] VITALS: BP 101/61; PULSE 61; RESP 18; TEMP 99.3; O2SAT 100
[2024-07-06] MEDS: cefTRIAXone 1GM/50ML D5W 50 ML IV SCH (10:04)
[2024-07-06] MEDS: PANTOPRAZOLE 40 MG/10 ML VIAL INJ IV SCH (10:07)
--- NOTE | 2024-07-06 12:38 | DVHINCON2 ---
GI Consult Consult Note GI consult note Date of Consultation: 07/06/2024 Chief Complaint: Colitis Referring Physician: Austin MENG H&P: 34-year-old male presented to ER with hematemesis Patient admits to abdominal pain mostly in the upper epigastric area, similar episode in February SP EGD Patient admits to 20-30 times where he was throwing up blood yesterday. Patient has nausea today denies vomiting or hematemesis Patient admits to history of GERD Last bowel movement yesterday no melena or red blood in stool. Patient complains of occasional loose stool Patient denies use of NSAIDs. Occasional alcohol use only EGD report - PROCEDURE PERFORMED BY: Ethan Ye MD REFERRING PROVIDER: Dr Mare HARVEY PROCEDURE PERFORMED: 1. Esophagogastroduodenoscopy with biopsy with moderate sedation PRE-PROCEDURE DIAGNOSIS: 1. Epigastric abdominal pain 2. Nausea and vomiting 3. Hematemesis POSTPROCEDURE DIAGNOSIS: 1. Severe erosive esophagitis mid to distal esophageal 2. Severe gastritis within the hernia, [id number]-[id number]-[id number] gastritis in the body and antrum 3. Hiatal hernia , 3-4 CM 4. Mild duodenitis Pathology report Stomach biopsy Moderate chronic inactive gastritis Helicobacter pylori organisms present Past Medical History: Hiatal hernia Past Surgical History: Denies Social History: NO smoking, drinking ETOH and use of illegal drugs. Family History: Noncontributory Review of Systems: Constitutional: no fever, chill, weight loss HEENT: no eye pain, no hearing loss, no oral lesion, no scleral icterus Heart: no chest pain, no chest pressure Lung: no cough, no dyspnea with exertion Abdomen: see HPI Physical exam: General: NAD, AAOX3 Chest: lung stephens clear to auscultation Heart: RRR, no murmur Abdomen:+ epigastric tenderness to palpation, +BS Labs: Labs Test 07/06/24 11:29 07/06/24 05:20 07/05/24 19:53 07/05/24 19:39 Range/Units Lactic Acid Level 1.0 0.4-2.0 mmol/L White Blood Count 14.0 H 4.4-10.8 10^3/uL Red Blood Count 4.38 L 4.5-5.90 10^6/uL Hemoglobin 13.7 13.5-17.5 g/dL Hematocrit 40.8 L 41.0-53.0 % Mean Corpuscular Volume 93.1 80.0-100.0 fL Mean Corpuscular Hemoglobin 31.3 28.0-32.0 pg Mean Corpuscular Hemoglobin Concent 33.6 32.0-36.0 g/dL Red Cell Distribution Width 13.9 11.8-14.3 % Platelet Count 239 140-450 10^3/uL Mean Platelet Volume 8.4 6.9-10.8 fL Neutrophils (%) (Auto) 77.6 37.0-80.0 % Lymphocytes (%) (Auto) 15.5 10.0-50.0 % Monocytes (%) (Auto) 6.7 0.0-12.0 % Eosinophils (%) (Auto) 0.0 0.0-7.0 % Basophils (%) (Auto) 0.2 0.0-2.0 % Neutrophils # (Auto) 10.8 H 1.6-8.6 10 ^3/uL Lymphocytes # (Auto) 2.2 0.4-5.4 10 ^3/uL Monocytes # (Auto) 0.9 0-1.3 10 ^3/uL Eosinophils # (Auto) 0 0-0.8 10 ^3/uL Basophils # (Auto) 0 0-0.2 10 ^3/uL Nucleated Red Blood Cells 0.0 % Sodium Level 140 136-145 mmol/L Potassium Level 3.7 3.5-5.1 mmol/L Chloride Level 105 98-107 mmol/L Carbon Dioxide Level 24 20-31 mmol/L Anion Gap 11 5-15 Blood Urea Nitrogen 9 9-23 mg/dL Creatinine 0.82 0.700-1.30 mg/dL Glomerular Filtration Rate Calc 120 >90 mL/min BUN/Creatinine Ratio 11.0 10.0-20.0 Serum Glucose 99 74-106 mg/dL Hemoglobin A1c 5.1 <5.7 % A1C Calcium Level 10.1 8.7-10.4 mg/dL Total Bilirubin 0.8 0.2-1.0 mg/dL Aspartate Amino Transferase (AST) 11 L 13-40 U/L Alanine Aminotransferase (ALT) 27 7-40 U/L Alkaline Phosphatase 58 46-116 U/L Total Protein 7.8 5.7-8.2 g/dL Albumin 5.3 H 3.2-4.8 g/dL Thyroid Stimulating Hormone (TSH) 0.60 0.55-4.78 uIU/mL Prothrombin Time 11.4 9.3-11.8 sec Prothrombin Time INR 1.08 0.9-1.15 Activated Partial Thromboplast Time 25.8 24.5-34.5 SEC Lipase 22 12-53 U/L Urine Color Yellow Yellow Urine Clarity Clear Clear Urine pH 8.5 5.0-9.0 Urine Specific Buckner 1.030 1.001-1.035 Urine Protein 3+ H Negative Urine Ketones 1+ H Negative Urine Blood Negative Negative /uL Urine Nitrite Negative Negative Urine Bilirubin Negative Negative Urine Urobilinogen Normal Negative mg/dL Urine Leukocyte Esterase Negative Negative /uL Urine RBC 40 0 - 3 /hpf Urine Microscopic WBC 1 0-3 /HPF Urine Squamous Epithelial Cells None seen <5 /hpf Urine Bacteria None seen None Seen /hpf Urine Mucus Few None Seen Urine Glucose Normal Normal mg/dL Urine Opiates Screen Neg NEGATIVE Urine Fentanyl Screen Neg NEGATIVE Urine Barbiturates Screen Neg NEGATIVE Urine Phencyclidine Screen Neg NEGATIVE Urine Amphetamines Screen Neg NEGATIVE Urine Benzodiazepines Screen Neg NEGATIVE Urine Cocaine Screen Neg NEGATIVE Urine Cannabinoids Screen Pos NEGATIVE Test 07/05/24 18:34 Range/Units Troponin I High Sensitivity < 3 L </=54 ng/L Imaging: CT abdomen pelvis IMPRESSION: Evidence of bowel wall thickening involving the transverse colon and hepatic flexure, nonspecific, may represent colitis. Otherwise unremarkable study. Assessment: Colitis Hematemesis Abdominal pain Gastritis Ulcerative esophagitis history H. pylori positive Hiatal hernia Plan: Discussed with Dr. Jalloh Stool for WBC, bacterial culture and C diff Continue antibiotic treatment Monitor labs Protonix and Zofran. And Carafate Treatment for H pylori with Amoxil/Biaxin and PPI upon discharge. Stressed importance of follow-up in GI Clinic to patient We will continue to monitor the patient Discussed plan with patient and RN Thank you for this consult Date of Service: Jul 06, 2024 Billing Provider: YANCY SOUZA Common Visit Codes: CONSULT ONLY Consultation Codes: [id number] CONSULT <60MIN YANCY SOUZA Jul 06, 2024 12:38
[2024-07-06 14:00] VITALS: BP 122/76; PULSE 51; RESP 16; TEMP 98.5; O2SAT 97
[2024-07-06 15:27] VITALS: RESP 16
[2024-07-06 17:52] VITALS: BP 117/70; PULSE 53; RESP 16; TEMP 98.5; O2SAT 100
[2024-07-06] MEDS: ONDANSETRON HCL 4 MG/2 ML VIAL IV PRN (18:18)
[2024-07-06 20:00] VITALS: PULSE 56; RESP 20; O2SAT 99
[2024-07-06 21:00] VITALS: BP 118/61; PULSE 56; RESP 20; TEMP 98.2; O2SAT 99
[2024-07-06] MEDS ORDERED: METOCLOPRAMIDE HCL 5MG/ml INJ 2ml VIAL IV SCH (22:00)
[2024-07-06] MEDS: SUCRALFATE 1 GM/10 ML ORAL SUSP PO SCH (22:00)
[2024-07-06] MEDS: SODIUM CHLORIDE 0.9% 500 ML IV ONE (22:19)
[2024-07-06] MEDS: METOCLOPRAMIDE HCL 5MG/ml INJ 2ml VIAL IV PRN (22:21)
[2024-07-06] MEDS: MORPHINE SULFATE INJ 2 MG/ml SYRG IV PRN (22:37)
[2024-07-07] VITALS (7 sets, daily range): BP systolic 107–158; BP diastolic 45–75; PULSE 52–88; RESP 17–20; TEMP 97.5–99.2; O2SAT 97–100
[2024-07-07 07:28] LABS: Basophils # (auto) 0 10 ^3/uL (0-0.2); Basophils % (auto) 0.2 % (0.0-2.0); Eosinophils # (auto) 0 10 ^3/uL (0-0.8); Hematocrit 38.2 % (41.0-53.0); Hemoglobin 12.8 g/dL (13.5-17.5); Lymphocytes % (auto) 26.5 % (10.0-50.0); Mean Corpuscular Hemoglobin 31.3 pg (28.0-32.0); Mean Corpuscular Hgb Conc. 33.6 g/dL (32.0-36.0); Mean Corpuscular Volume 93.2 fL (80.0-100.0); Monocytes # (auto) 0.7 10 ^3/uL (0-1.3); Monocytes % (auto) 6.6 % (0.0-12.0); Neutrophils # (auto) 7.5 10 ^3/uL (1.6-8.6); Neutrophils % (auto) 66.7 % (37.0-80.0); Platelet Count (auto) 214 10^3/uL (140-450); Red Cell Distribution Width 13.4 % (11.8-14.3); White Blood Cell 11.3 10^3/uL (4.4-10.8)
[2024-07-07 07:30] LABS: Alanine Aminotransferase 20 U/L (7-40); Albumin 4.7 g/dL (3.2-4.8); Alkaline Phosphatase 52 U/L (46-116); Anion Gap 9 (5-15); BUN/Creatinine Ratio 12.2 (10.0-20.0); Blood Urea Nitrogen 10 mg/dL (9-23); Calcium 9.5 mg/dL (8.7-10.4); Carbon Dioxide 26 mmol/L (20-31); Chloride 107 mmol/L (98-107); Glucose 89 mg/dL (74-106); Potassium 3.5 mmol/L (3.5-5.1); Sodium 142 mmol/L (136-145); Total Protein 6.8 g/dL (5.7-8.2)
[2024-07-07 07:31] LABS: Bilirubin, Total 0.9 mg/dL (0.2-1.0)
[2024-07-07 07:39] LABS: Aspartate Aminotransferase 9 U/L (13-40)
[2024-07-07] MEDS: ONDANSETRON HCL 4 MG/2 ML VIAL ONE (10:01)
--- NOTE | 2024-07-07 10:09 | DVHPN2 ---
Progress Note Date Seen: Jul 07, 2024 Resident Creating Document: CHAD LIVINGSTON RESIDENT Medical Necessity Reason Pt with a Central, PICC or Fol: No Subjective Review of Systems 34-year-old male with past medical history of hiatal hernia presented to the ED with a chief complaint of epigastric abdominal pain with nausea and vomiting for 6 hours prior to this admission. the patient stated he noticed blood clot with the emesis. the patient he had same symptoms 4 months ago and was admitted to the [facility] on February,. patient underwent EGD which revealed 3-4 cm hiatal hernia, severe erosive esophagitis and rnno-qk-gsmtircv gastritis and duodenitis. Patient denied melena, chest pain, shortness of breath, altered bowel habit, sick contact or any history of traveling recently. Patient complains of occasional loose stool, Patient denies use of NSAIDs. Occasional alcohol use only. Patient was seen and examined on the bedside. Complain of nausea and abdominal pain. No other active complaints. Objective vital signs Vital Sign Date Time Temp Pulse Resp B/P (MAP) Pulse Ox O2 Delivery O2 Flow Rate FiO2 07/07/24 08:52 98.5 55 20 109/52 (71) 99 98.5 07/06/24 20:00 Room Air* 0 21 Total Intake and Output 07/06/24 07/06/24 07/07/24 15:00 23:00 07:00 Intake Total 100 ml 1050 ml Balance 100 ml 1050 ml medications Current Medications Medications Dose Ordered Sig/Alonso Route Start Time Stop Time Status Last Admin Dose Admin Nitroglycerin 0.4 mg Q5MINP PRN SL 07/05/24 23:00 Morphine Sulfate 2 mg Q30M PRN IV 07/05/24 23:00 Ceftriaxone Sodium 50 ml @ 100 mls/hr DAILY@09 IV 07/06/24 09:00 07/07/24 08:02 100 MLS/HR Metronidazole 100 ml @ 100 mls/hr Q8HR IV 07/06/24 06:00 07/07/24 06:46 100 MLS/HR Acetaminophen/ Hydrocodone Bitart 1 tab Q4HP PRN PO 07/05/24 23:00 07/06/24 18:18 1 TAB Ondansetron HCl 4 mg Q4HP PRN IV 07/05/24 23:00 Hold 07/06/24 18:18 4 MG Acetaminophen 650 mg Q6HP PRN PO 07/05/24 23:00 Morphine Sulfate 2 mg Q6HPRN PRN IV 07/05/24 23:00 07/06/24 22:37 2 MG Pantoprazole Sodium 40 mg DAILY IV 07/06/24 10:00 07/07/24 08:02 40 MG Sucralfate 1 gm BID@0600,2200 PO 07/06/24 22:00 07/07/24 06:46 1 GM Sodium Chloride 1,000 ml @ 75 mls/hr [id number] IV 07/06/24 20:15 07/06/24 22:20 75 MLS/HR Metoclopramide HCl 5 mg Q8HR IV 07/06/24 22:00 UNV Metoclopramide HCl 5 mg Q6HPRN PRN IV 07/06/24 20:45 07/07/24 04:44 5 MG Examination General Appearance: Cooperative, No acute distress HEENT: Atraumatic, PERRLA, EOMI, Mucous membrane moist/pink Respiratory: Clear to auscultation, Normal air movement Cardiovascular: Regular rate, Normal S1, Normal S2, No murmurs, no chest wall tenderness Abdominal: Normal bowel sounds, Soft, mild tenderness in the epigastric region, No hepatospenomegaly, No masses Extremities: No clubbing, No cyanosis, No edema, Normal pulses, No tenderness/swelling Skin: No rashes, No breakdown, No significant lesion Neuro: Alert, Oriented X3, laboratory and microbiology Laboratory Tests 07/07/24 06:18 Test 07/07/24 06:18 Range/Units Serum Glucose 89 74-106 mg/dL Microbiology Date/Time Source Procedure Growth Status 07/05/24 20:13 Blood Blood Culture - Preliminary NO GROWTH AFTER 24 HOURS OF INCUBATION. Resulted Problem List/Assessment/Plan Problem List/Assessment/Plan # Sepsis likely due to colitis # Possible upper GI bleeding likely due to gastritis # H.pylori positive # Intractable abdominal pain , nausea and vomiting likely due to colitis # Ulcerative esophagitis history Plan: - H&H is stable - Pending SOBT - last EGD shows: Severe erosive esophagitis mid to distal esophageal, Severe gastritis within the hernia, [id number] gastritis in the body and antrum, Hiatal hernia , 3-4 CM, Mild duodenitis. - Stool for WBC, bacterial culture and C diff - Continue antibiotic treatment - Monitor labs - Protonix and Zofran. And Carafate - recommended for discontinue IV antibiotic and start treatment for H pylori - Treatment for H pylori with Amoxil/Biaxin and PPI upon discharge. Thank you so much for the opportunity to consult on your patient. GI team will follow the patient. In case of any questions or concerns please feel free to reach out. Case discussed with Dr. Pavel Jalloh. The patient and caregiver team agreed to the plan. Plan discussed with: Patient YARACHAD RESIDENT Jul 07, 2024 10:09
[2024-07-07] MEDS: ONDANSETRON HCL 4 MG/2 ML VIAL IV ONE (11:04)
[2024-07-07] MEDS ORDERED: ONDANSETRON HCL 4 MG/2 ML VIAL IV PRN (11:15)
[2024-07-07] MEDS ORDERED: SUCR1SUS5 PO (13:22)
[2024-07-07] MEDS ORDERED: PANT40TA2 PO (13:22)
[2024-07-07] MEDS ORDERED: [UNRECOGNIZED DRUG - CODE] PO (13:22)
--- NOTE | 2024-07-07 17:07 | DVHPNRES ---
Progress Note Date Seen: Jul 07, 2024 Resident Creating Document: NERISSA TUTTLE RESIDENT Medical Necessity Reason Pt with a Central, PICC or Fol: No Subjective Review of Systems Patient was seen and examined on the bedside. He is alert oriented x3. The patient complains of nausea not able to tolerate oral diet despite taking IV Zofran Q 8 p.r.n. Discontinued IV antibiotic as per GI recommendation. Possible discharge tomorrow Objective vital signs Vital Sign Date Time Temp Pulse Resp B/P (MAP) Pulse Ox O2 Delivery O2 Flow Rate FiO2 07/07/24 12:44 99.2 60 20 111/51 (71) 97 99.2 07/07/24 07:30 Room Air* 0 21 Total Intake and Output 07/06/24 07/06/24 07/07/24 15:00 23:00 07:00 Intake Total 100 ml 1050 ml Balance 100 ml 1050 ml medications Current Medications Medications Dose Ordered Sig/Alonso Route Start Time Stop Time Status Last Admin Dose Admin Nitroglycerin 0.4 mg Q5MINP PRN SL 07/05/24 23:00 Morphine Sulfate 2 mg Q30M PRN IV 07/05/24 23:00 Acetaminophen/ Hydrocodone Bitart 1 tab Q4HP PRN PO 07/05/24 23:00 07/06/24 18:18 1 TAB Acetaminophen 650 mg Q6HP PRN PO 07/05/24 23:00 Morphine Sulfate 2 mg Q6HPRN PRN IV 07/05/24 23:00 07/06/24 22:37 2 MG Sodium Chloride 1,000 ml @ 75 mls/hr [id number] IV 07/06/24 20:15 07/06/24 22:20 75 MLS/HR Metoclopramide HCl 5 mg Q8HR IV 07/06/24 22:00 UNV Ondansetron HCl 4 mg Q8HPRN PRN IV 07/07/24 11:15 Pantoprazole Sodium 40 mg BID IV 07/07/24 22:00 Sucralfate 1 gm QIDACHS PO 07/07/24 17:00 Examination Physical examination: General Appearance: Alert, Oriented X3, Cooperative, No acute distress HEENT: Atraumatic, PERRLA, EOMI, Mucous membrane moist/pink Respiratory: Clear to auscultation, Normal air movement Cardiovascular: Regular rate, Normal S1, Normal S2, No murmurs, no chest wall tenderness Abdominal: Normal bowel sounds, Soft, No tenderness, No hepatospenomegaly, No masses Extremities: No clubbing, No cyanosis, No edema, Normal pulses, No tenderness/swelling Skin: No rashes, No breakdown, No significant lesion Neuro: Normal gait, Normal speech, Strength at 5/5 X4 ext, Normal tone, Sensation intact, Cranial nerves 3-12 NL, Reflexes 2+ Psych/Mental Status: Mental status NL, Mood NL laboratory and microbiology Laboratory Tests 07/07/24 06:18 Test 07/07/24 06:18 Range/Units Serum Glucose 89 74-106 mg/dL Microbiology Date/Time Source Procedure Growth Status 07/07/24 09:21 Stool Received 07/05/24 20:13 Blood Blood Culture - Preliminary NO GROWTH AFTER 24 HOURS OF INCUBATION. Resulted Labs and/or images reviewed: Labs reviewed by me, Image(s) reviewed by me Problem List/Assessment/Plan Problem List/Assessment/Plan Assessment and plan: # Sepsis likely due to colitis # Possible upper GI bleeding likely due to gastritis # H.pylori positive # Intractatable abdominal pain , nausea and vomiting likely due to colitis # Rule out infectious etiology of colitis # Lactic acidosis likely due to dehydration CT abdomen pelvis revealed evidence of bowel wall thickening involving the transverse colon and hepatic flexure, nonspecific, may represent colitis. EGD on 03/21 demonstrated Severe erosive esophagitis mid to distal esophageal, severe gastritis within the hernia, medp-ma-[id number] gastritis in the body and antrum, hiatal hernia , 3-4 CM and mild duodenitis Histopathology of gastric antral tissue biopsy demonstrated chronic inactive gastritis and H pylori organism positive. - H&H is stable - Pending FOBT - GI in board and recommended stool for WBC, bacterial culture and C-diff - Patient is on clear liquid diet - IV normal saline at 100 mL/hours - IV Protonix 40 mg b.i.d - Carafate suspension 1 g p.o.qid - Discontinued IV antibiotic as per GI recommendation PUD prophylaxis : On protonix DVT prophylaxis : Not recommended as patient is mobile , Code status : Full code Plan discussed with Dr. Smith Plan discussed with: Patient, Other My Orders My Orders Orders - NERISSA TUTTLE RESIDENT Procedure Category Date Status Time Clostridium Difficile SVETLANA 07/07/24 In Process Toxin 09:21 Ondansetron Hcl PHA 07/07/24 In Process (Zofran) 11:15 Date of Service: Jul 07, 2024 Billing Provider: LEESA ARCHIBALD MD Common Visit Codes: [id number] INP/OBS CARE(HIGH) NERISSA TUTTLE RESIDENT Jul 07, 2024 17:07 LEESA ARCHIBALD MD Jul 11, 2024 23:44
[2024-07-07] MEDS: ACETAMINOPHEN 325 MG TAB PO PRN (18:07)
[2024-07-07] MEDS: SUCRALFATE 1 GM/10 ML ORAL SUSP PO SCH (18:07)
[2024-07-07] MEDS: PANTOPRAZOLE 40 MG/10 ML VIAL INJ IV SCH (22:23)
[2024-07-08 01:00] VITALS: BP 104/38; PULSE 50; RESP 15; TEMP 98.1; O2SAT 99
[2024-07-08 05:00] VITALS: BP 103/56; PULSE 49; RESP 16; TEMP 98.3; O2SAT 98
[2024-07-08 07:25] LABS: Anion Gap 10 (5-15); Calcium 9.1 mg/dL (8.7-10.4); Carbon Dioxide 25 mmol/L (20-31); Chloride 106 mmol/L (98-107); Sodium 141 mmol/L (136-145)
[2024-07-08 07:26] LABS: Basophils # (auto) 0 10 ^3/uL (0-0.2); Basophils % (auto) 0.4 % (0.0-2.0); Eosinophils # (auto) 0 10 ^3/uL (0-0.8); Eosinophils % (auto) 0.3 % (0.0-7.0); Hematocrit 35.3 % (41.0-53.0); Hemoglobin 12.2 g/dL (13.5-17.5); Lymphocytes # (auto) 2.1 10 ^3/uL (0.4-5.4); Lymphocytes % (auto) 30.7 % (10.0-50.0); Mean Corpuscular Hemoglobin 32.5 pg (28.0-32.0); Mean Corpuscular Hgb Conc. 34.6 g/dL (32.0-36.0); Mean Corpuscular Volume 94.1 fL (80.0-100.0); Monocytes # (auto) 0.5 10 ^3/uL (0-1.3); Neutrophils # (auto) 4.1 10 ^3/uL (1.6-8.6); Neutrophils % (auto) 60.6 % (37.0-80.0); Platelet Count (auto) 185 10^3/uL (140-450); Potassium 3.3 mmol/L (3.5-5.1); Red Blood Cells 3.75 10^6/uL (4.5-5.90); Red Cell Distribution Width 13.2 % (11.8-14.3); White Blood Cell 6.8 10^3/uL (4.4-10.8)
[2024-07-08 07:31] LABS: BUN/Creatinine Ratio 9.6 (10.0-20.0); Glucose 75 mg/dL (74-106)
[2024-07-08 07:34] LABS: Blood Urea Nitrogen 8 mg/dL (9-23)
[2024-07-08 09:00] VITALS: BP 111/70; PULSE 61; RESP 18; TEMP 98.4; O2SAT 100
--- NOTE | 2024-07-08 10:59 | DVHDSRES ---
Discharge Summary Date of Admission Resident Creating Document: NERISSA TUTTLE RESIDENT Jul 05, 2024 at 22:50 Date of Discharge: Jul 08, 2024 Admitting Diagnosis Sepsis likely due to colitis Intractable abdominal pain, nausea and vomiting due to colitis Wounds: No wound was present Labs/Diagnostic Data: Laboratory Results Test 07/08/24 06:02 07/07/24 09:55 07/07/24 09:21 07/07/24 06:18 White Blood Count 6.8 10^3/uL (4.4-10.8) Red Blood Count 3.75 10^6/uL (4.5-5.90) Hemoglobin 12.2 g/dL (13.5-17.5) Hematocrit 35.3 % (41.0-53.0) Mean Corpuscular Volume 94.1 fL (80.0-100.0) Mean Corpuscular Hemoglobin 32.5 pg (28.0-32.0) Mean Corpuscular Hemoglobin Concent 34.6 g/dL (32.0-36.0) Red Cell Distribution Width 13.2 % (11.8-14.3) Platelet Count 185 10^3/uL (140-450) Mean Platelet Volume 8.5 fL (6.9-10.8) Neutrophils (%) (Auto) 60.6 % (37.0-80.0) Lymphocytes (%) (Auto) 30.7 % (10.0-50.0) Monocytes (%) (Auto) 8.0 % (0.0-12.0) Eosinophils (%) (Auto) 0.3 % (0.0-7.0) Basophils (%) (Auto) 0.4 % (0.0-2.0) Neutrophils # (Auto) 4.1 10 ^3/uL (1.6-8.6) Lymphocytes # (Auto) 2.1 10 ^3/uL (0.4-5.4) Monocytes # (Auto) 0.5 10 ^3/uL (0-1.3) Eosinophils # (Auto) 0 10 ^3/uL (0-0.8) Basophils # (Auto) 0 10 ^3/uL (0-0.2) Nucleated Red Blood Cells 0.0 % Sodium Level 141 mmol/L (136-145) Potassium Level 3.3 mmol/L (3.5-5.1) Chloride Level 106 mmol/L (98-107) Carbon Dioxide Level 25 mmol/L (20-31) Anion Gap 10 (5-15) Blood Urea Nitrogen 8 mg/dL (9-23) Creatinine 0.83 mg/dL (0.700-1.30) Glomerular Filtration Rate Calc 119 mL/min (>90) BUN/Creatinine Ratio 9.6 (10.0-20.0) Serum Glucose 75 mg/dL (74-106) Calcium Level 9.1 mg/dL (8.7-10.4) Stool Occult Blood Negative (Negative) Stool Occult Blood Sample #3 (Negative) Stool for White Cells Few Total Bilirubin 0.9 mg/dL (0.2-1.0) Aspartate Amino Transferase (AST) 9 U/L (13-40) Alanine Aminotransferase (ALT) 20 U/L (7-40) Alkaline Phosphatase 52 U/L (46-116) Total Protein 6.8 g/dL (5.7-8.2) Albumin 4.7 g/dL (3.2-4.8) Test 07/06/24 11:29 07/06/24 05:20 07/05/24 19:53 07/05/24 19:39 Lactic Acid Level 1.0 mmol/L (0.4-2.0) Hemoglobin A1c 5.1 % A1C (<5.7) Thyroid Stimulating Hormone (TSH) 0.60 uIU/mL (0.55-4.78) Prothrombin Time 11.4 sec (9.3-11.8) Prothrombin Time INR 1.08 (0.9-1.15) Activated Partial Thromboplast Time 25.8 SEC (24.5-34.5) Lipase 22 U/L (12-53) Urine Color Yellow (Yellow) Urine Clarity Clear (Clear) Urine pH 8.5 (5.0-9.0) Urine Specific [place] 1.030 (1.001-1.035) Urine Protein 3+ (Negative) Urine Ketones 1+ (Negative) Urine Blood Negative /uL (Negative) Urine Nitrite Negative (Negative) Urine Bilirubin Negative (Negative) Urine Urobilinogen Normal mg/dL (Negative) Urine Leukocyte Esterase Negative /uL (Negative) Urine RBC 40 /hpf (0 - 3) Urine Microscopic WBC 1 /HPF (0-3) Urine Squamous Epithelial Cells None seen /hpf (<5) Urine Bacteria None seen /hpf (None Seen) Urine Mucus Few (None Seen) Urine Glucose Normal mg/dL (Normal) Urine Opiates Screen Neg (NEGATIVE) Urine Fentanyl Screen Neg (NEGATIVE) Urine Barbiturates Screen Neg (NEGATIVE) Urine Phencyclidine Screen Neg (NEGATIVE) Urine Amphetamines Screen Neg (NEGATIVE) Urine Benzodiazepines Screen Neg (NEGATIVE) Urine Cocaine Screen Neg (NEGATIVE) Urine Cannabinoids Screen Pos (NEGATIVE) Test 07/05/24 18:34 Troponin I High Sensitivity < 3 ng/L (</=54) Other Laboratory Tests 07/08/24 06:02 Brief Hx & Hospital Course: This is a 34-year-old male with past medical history of hiatal hernia presented to the ED with a chief complaint of epigastric abdominal pain with nausea and vomiting for 6 hours prior to this admission. the patient stated he noticed blood clot with the emesis. the patient he had same symptoms 4 months ago and was admitted to the [facility] on February,. patient underwent EGD which revealed 3-4 cm hiatal hernia, severe erosive esophagitis and [id number] gastritis and duodenitis. Patient denied melena, chest pain, shortness of breath, altered bowel habit, sick contact or any history of traveling recently. Hospital course: Initially patient was presented with sepsis and CT abdomen pelvis revealed evidence of bowel wall thickening involving the transverse colon and hepatic flexure, nonspecific, may represent colitis. EGD on 03/21 demonstrated Severe erosive esophagitis mid to distal esophageal, severe gastritis within the hernia, [id number] gastritis in the body and antrum, hiatal hernia , 3-4 CM and mild duodenitis and the histopathology of gastric antral and duodenal specimen was positive for H.Pylori. H/H was stable, FOBT negative and stool study was positve for few WBC and campylobacter . GI was on board. Patient was treated with IV fluid, IV ceftriaxone 1 gm daily, IV metronidazole 500 mg tid, IV protonix 40 mg bid, carafate suspension 1 gm qid and Zofran 4 mg q8hr. GI recommended to start triple therapy for H.Pylori on discharge. Patient was discharged with Voquenza triple therapy for 14 days. protonix 40 mg bid for 1 month, carafate 1 gm bid for 1 month and advised to follow up with DC clinic in 1 week and outpatient GI in 1 to 2 weeks. Physical examination: General Appearance: Alert, Oriented X3, Cooperative, No acute distress HEENT: Atraumatic, PERRLA, EOMI, Mucous membrane moist/pink Respiratory: Clear to auscultation, Normal air movement Cardiovascular: Regular rate, Normal S1, Normal S2, No murmurs, no chest wall tenderness Abdominal: Normal bowel sounds, Soft, No tenderness, No hepatospenomegaly, No masses Extremities: No clubbing, No cyanosis, No edema, Normal pulses, No tenderness/swelling Skin: No rashes, No breakdown, No significant lesion Neuro: Normal gait, Normal speech, Strength at 5/5 X4 ext, Normal tone, Sensation intact, Cranial nerves 3-12 NL, Reflexes 2+ Psych/Mental Status: Mental status NL, Mood NL Discharge diagnosis: # Sepsis likely due to colitis # Possible upper GI bleeding likely due to gastritis # H.pylori positive # Intractatable abdominal pain , nausea and vomiting likely due to colitis # Rule out infectious etiology of colitis # Lactic acidosis likely due to dehydration # Hypokalemia Consults/Reason for consult GI was consulted Operations or Procedures Exam: CT CT AB PEL WITH IV CON ONLY History: ABD PAIN N/V Findings: Lung Bases: No abnormality demonstrated. Liver: Liver is normal in size. No focal lesions noted. Normal hepatic vascular enhancement. Gallbladder and Biliary Tree: No abnormality demonstrated. Spleen: No abnormality demonstrated. Pancreas: No abnormality demonstrated. Adrenal Glands: No abnormality demonstrated. Kidneys: No abnormality demonstrated. No evidence of renal mass, calculus, or hydroureteronephrosis. Bladder: Unremarkable. Bowel: Stomach appears grossly unremarkable. No small bowel abnormality noted. There is evidence of bowel wall thickening involving the transverse colon and hepatic flexure, nonspecific, may represent colitis. Appendix appears unremarkable. Ascites: Absent Lymphadenopathy: No evidence of lymphadenopathy. Abdominal Wall and Mesentery: Unremarkable. Vasculature: Unremarkable. Pelvic Organs: Unremarkable. Musculoskeletal: No bony lesions or fracture. IMPRESSION: Evidence of bowel wall thickening involving the transverse colon and hepatic flexure, nonspecific, may represent colitis. Otherwise unremarkable study. Condition at Discharge: Stable Final Diagnosis/Problems List # Sepsis likely due to colitis # Possible upper GI bleeding likely due to gastritis # H.pylori positive # Intractatable abdominal pain , nausea and vomiting likely due to colitis # Rule out infectious etiology of colitis # Lactic acidosis likely due to dehydration # Hypokalemia Discharge Disposition: Home Discharge Instruct/Medications Diet: Regular Activity: No Restrictions, As Tolerated Follow Up/Referral: Follow up with DC clinic in 1 week Follow up with Outpatient gastroenterology in 1-2 weeks Medications: As per EMR Discharge Statement: "Patient was advised to return to the ER or call 911 if any headaches, dizziness, shortness of breath, chest pain, abdominal pain, bleeding, fevers, or worsening of medical condition. Patient was counseled about treatment plan, medications, possible side effects, patientverbalized understanding. All questions were answered to the best of my ability. This discharge took greater then 30 minutes in planning, reviewing documentation, counseling the patient, and discussing with other team members." ASSESSMENT ASSESSMENT Assessment # Sepsis likely due to colitis # Possible upper GI bleeding likely due to gastritis # H.pylori positive # Intractatable abdominal pain , nausea and vomiting likely due to colitis # Rule out infectious etiology of colitis # Lactic acidosis likely due to dehydration # Hypokalemia Date of Service: Jul 08, 2024 Billing Provider: LEESA ARCHIBALD MD Common Visit Codes: 80488-GUS/OBS DISCH DAY >30min NERISSA TUTTLE RESIDENT Jul 08, 2024 10:59 LEESA ARCHIBALD MD Jul 12, 2024 00:23
[2024-07-08] MEDS: POTASSIUM CHL 20 Meq TABLET PO ONE (11:38)
--- NOTE | 2024-07-08 12:10 | DVHPN2 ---
Progress Note Date Seen: Jul 08, 2024 Resident Creating Document: CHAD LIVINGSTON RESIDENT Medical Necessity Reason Pt with a Central, PICC or Fol: No Subjective Review of Systems 34-year-old male with past medical history of hiatal hernia presented to the ED with a chief complaint of epigastric abdominal pain with nausea and vomiting for 6 hours prior to this admission. the patient stated he noticed blood clot with the emesis. the patient he had same symptoms 4 months ago and was admitted to the [facility] on February,. patient underwent EGD which revealed 3-4 cm hiatal hernia, severe erosive esophagitis and [id number] gastritis and duodenitis. Patient denied melena, chest pain, shortness of breath, altered bowel habit, sick contact or any history of traveling recently. Patient complains of occasional loose stool, Patient denies use of NSAIDs. Occasional alcohol use only. Objective vital signs Vital Sign Date Time Temp Pulse Resp B/P (MAP) Pulse Ox O2 Delivery O2 Flow Rate FiO2 07/08/24 09:00 98.4 61 18 111/70 (84) 100 98.4 07/07/24 20:00 Room Air* 0 21 Total Intake and Output 07/07/24 07/07/24 07/08/24 15:00 23:00 07:00 Intake Total 150 ml 662.5 ml 737.5 ml Output Total 525 ml Balance 150 ml 662.5 ml 212.5 ml medications Current Medications Medications Dose Ordered Sig/Alonso Route Start Time Stop Time Status Last Admin Dose Admin Nitroglycerin 0.4 mg Q5MINP PRN SL 07/05/24 23:00 Morphine Sulfate 2 mg Q30M PRN IV 07/05/24 23:00 Acetaminophen/ Hydrocodone Bitart 1 tab Q4HP PRN PO 07/05/24 23:00 07/06/24 18:18 1 TAB Acetaminophen 650 mg Q6HP PRN PO 07/05/24 23:00 07/07/24 18:07 650 MG Morphine Sulfate 2 mg Q6HPRN PRN IV 07/05/24 23:00 07/06/24 22:37 2 MG Sodium Chloride 1,000 ml @ 75 mls/hr [id number] IV 07/06/24 20:15 07/07/24 22:29 75 MLS/HR Metoclopramide HCl 5 mg Q8HR IV 07/06/24 22:00 UNV Ondansetron HCl 4 mg Q8HPRN PRN IV 07/07/24 11:15 Pantoprazole Sodium 40 mg BID IV 07/07/24 22:00 07/08/24 09:11 40 MG Sucralfate 1 gm QIDACHS PO 07/07/24 17:00 07/08/24 11:35 1 GM Examination Patient was seen and examined on the bedside. No new complaints. General Appearance: Cooperative, No acute distress HEENT: Atraumatic, PERRLA, EOMI, Mucous membrane moist/pink Respiratory: Clear to auscultation, Normal air movement Cardiovascular: Regular rate, Normal S1, Normal S2, No murmurs, no chest wall tenderness Abdominal: Normal bowel sounds, Soft, mild tenderness in the epigastric region, No hepatospenomegaly, No masses Extremities: No clubbing, No cyanosis, No edema, Normal pulses, No tenderness/swelling Skin: No rashes, No breakdown, No significant lesion Neuro: Alert, Oriented X3, laboratory and microbiology Laboratory Tests 07/08/24 06:02 Test 07/08/24 06:02 Range/Units Serum Glucose 75 74-106 mg/dL Microbiology Date/Time Source Procedure Growth Status 07/07/24 09:21 Stool Stool Culture - Preliminary Resulted 07/07/24 09:21 Stool Shiga Toxin I & II - Final Resulted 07/05/24 20:13 Blood Blood Culture - Preliminary NO GROWTH AFTER 48 HOURS OF INCUBATION. Resulted Problem List/Assessment/Plan Problem List/Assessment/Plan # Sepsis likely due to colitis # Possible upper GI bleeding likely due to gastritis # H.pylori positive # Intractable abdominal pain , nausea and vomiting likely due to colitis # Ulcerative esophagitis history Plan: - H&H is stable - Pending SOBT - last EGD shows: Severe erosive esophagitis mid to distal esophageal, Severe gastritis within the hernia, [id number] gastritis in the body and antrum, Hiatal hernia , 3-4 CM, Mild duodenitis. - Stool for WBC, bacterial culture and C diff - Continue antibiotic treatment - Monitor labs - Protonix and Zofran. And Carafate - recommended for discontinue IV antibiotic and start treatment for H pylori - Treatment for H pylori with Amoxil/Biaxin and PPI upon discharge. - continue H pylori treatment for 14 days Thank you so much for the opportunity to consult on your patient. GI team will follow the patient. In case of any questions or concerns please feel free to reach out. Case discussed with Dr. Pavel Jalloh. The patient and caregiver team agreed to the plan. Plan discussed with: Patient ANKITSEECHAD RESIDENT Jul 08, 2024 12:10
[2024-07-09] MEDS ORDERED: AMOX500C2 PO (09:32)
[2024-07-09] MEDS ORDERED: CLAR1TAB21 PO (09:32)
--- NOTE | 2024-07-09 15:11 | ECG ---
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
== END 2024-07-08 13:45 | disposition home or self-care (01) | DRG 720 ==
LOC: ER 17:33 → OVERFLOW 22:50 → EAST 07-06 15:14
PROVIDERS: ADMIT Student in an Organized Health Care Education/Training Program; ATTEND Emergency Medicine
DX: A41.9 Sepsis, unspecified organism (principal); E87.20 Acidosis, unspecified; K29.71 Gastritis, unspecified, with bleeding; R71.0 Precipitous drop in hematocrit; E86.0 Dehydration; K52.9 Noninfective gastroenteritis and colitis, unspecified; K44.9 Diaphragmatic hernia without obstruction or gangrene; B96.81 Helicobacter pylori [H. pylori] as the cause of diseases classified elsewhere; F17.210 Nicotine dependence, cigarettes, uncomplicated; E87.6 Hypokalemia
CPT/HCPCS: 36415; 74177; 80048; 80053; 80307; 81001; 82270; 83036; 83605; 83690; 84443; 84484; 85025; 85048; 85610; 85730; 86850; 86900; 86901; 87040; 87045; 87427; 87493; 93005; 96365; 96375; 99291; G0378; J2405; J2470; J2543; J3490